=== PATIENT | female | born 1985 | race Two or more races ===

== ENCOUNTER 2017-03-14 02:22 | Emergency (ER) | payer SELFPAY ==
[~2017-03-14] VITALS: Ht 162.6 cm; Wt 58.1 kg
--- NOTE | 2017-03-14 02:45 | NUR ---
To bed 18 a 31 yo female patient bb friend; 8 wks preg, vaginal bleeding since 10p; gone through 3 pads. Patient also complaining of lower abdl pain. lmp 01/13/2017. a1. vss. nad noted. nondiaphoretic. gowned. comfort measures rendered.
--- NOTE | 2017-03-14 03:05 | NUR ---
started a saline lock on the lac g18, blood drawn and sent to lab.
[2017-03-14] MEDS: IV NS 0.9% 1,000 ML BAG IV ONE (03:10)
[2017-03-14 03:15] LABS: BASOPHILS % (AUTO) 0.7 % (0.0-2.0); EOSINOPHILS # (AUTO) 0.1 /CMM (0.0-0.7); EOSINOPHILS % (AUTO) 2.1 % (0.0-6.0); HEMATOCRIT 42 % (33-45); HEMOGLOBIN 13.7 g/dL (11.5-14.8); LYMPHOCYTES # (AUTO) 2.1 /CMM (0.8-4.8); LYMPHOCYTES % (AUTO) 29.8 % (20.0-44.0); MEAN CORPUSCULAR HEMOGLOBIN 27 PG (26.0-33.0); MEAN CORPUSCULAR HGB CONC 33 g/dl (31.0-36.0); MEAN CORPUSCULAR VOLUME 82 fL (82-100); MONOCYTES # (AUTO) 0.4 /CMM (0.1-1.30); MONOCYTES % (AUTO) 6.1 % (2.0-12.0); NEUTROPHILS # (AUTO) 4.4 /CMM (1.8-8.9); NEUTROPHILS % (AUTO) 61.3 % (43.0-81.0); PLATELET COUNT (AUTO) 218 /CMM (150-450); RDW COEFFICIENT OF VARIATION 13.2 (11.5-15.0); RED BLOOD CELL COUNT(AUTO) 5.09 MIL/uL (4.0-5.2); WHITE BLOOD COUNT (AUTO) 7.2 K/uL (4.3-11.0)
[2017-03-14 03:18] LABS: APPEARANCE,URINE CLOUDY (CLEAR); BILIRUBIN,URINE NEGATIVE (NEGATIVE); BLOOD, URINE 2+ Ery/uL (NEGATIVE); COLOR,URINE YELLOW (YELLOW); KETONES,URINE NEGATIVE (NEGATIVE); LEUKOCYTE ESTERASE ,URINE NEGATIVE (NEGATIVE); NITRITE, URINE NEGATIVE (NEGATIVE); PROTEIN,URINE NEGATIVE (NEGATIVE); UGLUCOSE NEGATIVE (NEGATIVE); UROBILINOGEN,URINE 0.2 EU/dL (0.2)
[2017-03-14 03:24] LABS: RBC,URINE 21-50 /HPF (0-2)
[2017-03-14 03:25] LABS: BACTERIA,URINE None seen /HPF (None Seen); SQUAMOUS EPITHELIAL CELL,UR Few /HPF (None Seen); URINE AMORPHOUS PHOSPHATES Moderate /HPF (None Seen); WBC,URINE 0-2 /HPF (0-3)
[2017-03-14 03:32] LABS: CALCIUM, SERUM 9.2 mg/dL (8.5-10.1); CREATININE 0.7 mg/dL (0.6-1.3); POTASSIUM 3.7 mmol/L (3.5-5.1)
[2017-03-14 03:35] LABS: INR 0.94 (0.87-1.13); PROTHROMBIN TIME 9.8 SECS (9.5-12.7)
--- NOTE | 2017-03-14 03:45 | NUR ---
ongoing ultrasound at bedside.
--- NOTE | 2017-03-14 03:53 | NUR ---
PT IS NOT A CANIDATE FOR RHOGAM. DR. EDWARDS MADE AWARE
[2017-03-14 03:59] LABS: BILIRUBIN,DIRECT 0.1 mg/dL (0.0-0.2); BILIRUBIN,TOTAL 0.3 mg/dL (0.2-1.0); TOTAL PROTEIN, SERUM 8.3 g/dL (6.4-8.2)
--- NOTE | 2017-03-14 04:46 | NUR ---
IV removed. Catheter intact and site benign. Pressure and 4x4 applied to site. No bleeding noted. Patient discharged to home in stable condition. Written and verbal after care instructions given. Patient verbalizes understanding of instruction. Patient is ambulatory with steady gait, accompanied by going home. No further complaints. Nad on dc. vss.
[2017-03-14 04:47] VITALS: BP 118/80
== END 2017-03-14 04:48 | disposition home or self-care (01) ==
LOC: ER 02:23
DX: O20.0 Threatened abortion (principal); Z3A.08 8 weeks gestation of pregnancy
CPT/HCPCS: 36415; 76856; 80048; 80076; 81001; 84702; 85025; 85730; 96360; 99285; A4606; J7030; Z7610; 81000-TC